=== PATIENT | male | born 1945 | race Caucasian/White ===

== ENCOUNTER → 2023-05-07 | Outpatient (CLI) | payer OTHER | LOC: LAB SHORT 15:13 → LAB 15:13 | DX: N39.0 Urinary tract infection, site not specified (principal) | CPT/HCPCS: 87077; 87086; 87186 ==

== ENCOUNTER → 2024-03-21 | Outpatient (CLI) | payer OTHER | LOC: PLD 07:17 → LAB SHORT 07:17 | DX: D48.5 Neoplasm of uncertain behavior of skin (principal) | CPT/HCPCS: 88341; 88342 ==

== ENCOUNTER 2024-11-05 10:25 | Emergency (ER) | payer OTHER ==
[~2024-11-05] VITALS: Ht 177.8 cm; Wt 68.0 kg
[2024-11-05] MEDS ORDERED: TIOT18 INH (11:05)
[2024-11-05] MEDS ORDERED: FLUTICASONE-SA1 EAC9 INH (11:05)
[2024-11-05] MEDS ORDERED: METO100ER PO (11:06)
[2024-11-05] MEDS ORDERED: ELIQUIS2.5 MG PO (11:06)
[2024-11-05] MEDS ORDERED: PROSTIN VR500 MCG/3 IV (11:06)
[2024-11-05] MEDS ORDERED: BUPR75 PO (11:07)
[2024-11-05] MEDS ORDERED: OMEP20ER PO (11:07)
[2024-11-05] MEDS ORDERED: VALSARTAN40 MG PO (11:07)
[2024-11-05] MEDS ORDERED: TAMS.4ER PO (11:07)
[2024-11-05] MEDS ORDERED: SPIR25 PO (11:07)
[2024-11-05] MEDS ORDERED: JARDIANCE10 MG PO (11:08)
[2024-11-05] MEDS ORDERED: ATOR20 PO (11:08)
[2024-11-05] MEDS ORDERED: ALFU10 PO (11:08)
[2024-11-05 11:17] LABS: BASOPHILS ABSOLUTE AUTO 0.06 K/mm3 (0.00-0.23); BASOPHILS PERCENT AUTO 1 % (0-2); EOSINOPHILS ABSOLUTE AUTO 0.51 K/mm3 (0.00-0.68); EOSINOPHILS PERCENT AUTO 6 % (0-6); Hematocrit 39.6 % (37.0-53.0); Hemoglobin 13.3 g/dL (13.5-17.5); IMMATURE GRAN ABSOLUTE AUTO 0.04 K/mm3 (0.00-0.10); IMMATURE GRAN PERCENT AUTO 1 % (0-1); LYMPHOCYTES ABSOLUTE AUTO 1.65 K/mm3 (0.84-5.20); LYMPHOCYTES PERCENT AUTO 20 % (21-46); MONOCYTES ABSOLUTE AUTO 0.72 K/mm3 (0.16-1.47); MONOCYTES PERCENT AUTO 9 % (4-13); Mean Corpuscular HGB 30.3 pg (26.0-34.0); Mean Corpuscular HGB Conc 33.6 g/dL (31.5-36.5); Mean Corpuscular Volume 90 fL (80-100); Mean Platelet Volume 11.3 fL (9.1-12.4); NEUTROPHILS ABSOLUTE AUTO 5.21 K/mm3 (1.96-9.15); NEUTROPHILS PERCENT AUTO 64 % (41-73); Platelet Count 151 K/mm3 (150-400); RDW Coefficient Variation 13.5 % (11.7-14.2); RDW Standard Deviation 44.2 fL (35.1-46.3); Red Blood Cell Count 4.39 M/mm3 (4.30-5.90); White Blood Cell Count 8.19 K/mm3 (4.00-11.30)
[2024-11-05 11:22] LABS: Albumin, Blood 2.9 g/dL (3.4-5.0); Albumin/Globulin Ratio 0.8 (0.8-1.8); Bilirubin, Total 0.7 mg/dL (0.1-1.0); Bun/Creatinine Ratio 12.3 (12.0-20.0); Calcium, Blood 8.4 mg/dL (8.5-10.1); Creatinine, Blood 1.55 mg/dL (0.60-1.20); Globulin, Blood 3.5 g/dL (2.2-4.0); Potassium, Blood 5.1 mmol/L (3.5-5.5); Total Protein, Blood 6.4 g/dL (6.4-8.2)
[2024-11-05] MEDS ORDERED: Lactated Ringer's 1,000 ML IV SCH (12:00)
[2024-11-05 12:40] LABS: Source, Urine Clean Catch
[2024-11-05 12:44] LABS: Appearance, Urine Cloudy (Clear); Bilirubin, Urine Neg (Neg); Blood, Urine 4+ (Neg); Color, Urine Yellow (P-Yellow); Glucose Qualitative, Urine 3+ (Neg); Ketones, Urine Neg (Neg); Leukocyte Esterase, Urine 1+ (Neg); Nitrite, Urine Neg (Neg); Protein, Urine Neg (Neg); Urobilinogen, Urine NORM (Normal)
[2024-11-05 12:53] LABS: Red Blood Cells, Urine 25-50 /hpf (0-2)
[2024-11-05 12:54] LABS: Bacteria Few /hpf; Squamous Epithelial Cells Many /hpf (Few)
[2024-11-05 13:45] VITALS: BP 108/86
== END 2024-11-05 14:22 | disposition home or self-care (01) ==
LOC: ER 10:25
PROVIDERS: Emergency Medicine
DX: I95.9 Hypotension, unspecified (principal); E86.0 Dehydration; R04.2 Hemoptysis; J44.9 Chronic obstructive pulmonary disease, unspecified; I48.91 Unspecified atrial fibrillation; K21.9 Gastro-esophageal reflux disease without esophagitis; I10 Essential (primary) hypertension; F17.210 Nicotine dependence, cigarettes, uncomplicated
CPT/HCPCS: 71046; 71260; 80053; 81001; 83880; 84443; 84484; 85025; 87086; 93005; 93010; 96360-59; 99285-25; J7120; Q9967